=== PATIENT | male | born 1980 | race Two or more races ===

== ENCOUNTER 2025-02-12 11:27 | Emergency (ER) | payer BC, SELFPAY ==
[2025-02-12 12:00] VITALS: BP 137/90; PULSE 76; RESP 16; TEMP 36.8; O2SAT 97; BMI 34.3
--- NOTE | 2025-02-12 12:11 | PD.EDABDPN ---
ED Abdominal Pain RME/HPI General Chief Complaint: Abdominal Pain Stated complaint: RLQ ABD PAIN Time seen by provider: 02/12/25 11:32 Arrival date/time: 02/12/25 11:27 RME / HPI RME / HPI narrative: DR. BELLA MAIN ED EVALUATION: 45-year-old male, accompanied by his father, presents to the Emergency Department for abdominal pain. The patient?s PCP and father is Dr. Larios. He reports that the pain began yesterday, initially located to the right of the umbilicus with an intensity of 8/10, which improved with ibuprofen but persisted mildly through the evening. Later that night, the pain migrated several inches downward to the right lower quadrant and became more constant and achy, currently rated 6/10. He denies nausea, vomiting, diarrhea, constipation, fever, or urinary symptoms. Reports excessive gas but no prior abdominal surgeries and no history of kidney stones. He can ambulate without difficulty, but sitting increases pressure and discomfort in the affected area. No known drug allergies. Related Data Allergies Allergy/AdvReac Type Severity Reaction Status Date / Time No Known Allergies Allergy Verified 02/12/25 11:30 Review of Systems Review of Systems Systems Reviewed: All systems reviewed, normal except as documented Past Medical History Social History SMOKING STATUS: Never smoker SUBSTANCE USE: does not use ALCOHOL: Never ED Exam Narrative Physical exam: GENERAL APPEARANCE: alert and oriented x 4, well-developed, well-nourished, appears mildly uncomfortable VITALS: All vitals were reviewed and the pulse ox is 97% on room air, which is normal according to my interpretation. HEENT: Normocephalic, atraumatic; pupils equal, round, reactive to light; EOMI; mucous membranes pink, moist; oropharynx clear NECK: Supple LUNGS: CTABL; no wheezes, no rales, no rhonchi HEART: Regular rate, regular rhythm; normal S1, S2; no murmurs ABDOMEN: Soft, mild involuntary guarding in the right lower quadrant; tenderness localized to RLQ; no rebound; non-distended; bowel sounds present BACK: no CVA tenderness EXTREMITIES: atraumatic; no edema NEUROLOGIC: awake; alert and oriented x4; cranial nerves II-XII grossly intact; no focal sensory or motor deficits PSYCHIATRIC: appropriate mood and affect SKIN: warm, dry, normal color; no rashes Course Quality Measures none Orders Category Date Time Status CT Screening NOW Care 02/12/25 12:[address] abdomen pelvis w con Stat Exams 02/12/25 12:53 Completed US renal BI Stat Exams 02/12/25 14:17 Taken CBC Stat Lab 02/12/25 12:38 Completed CMP [Comprehensive Metabolic Panel] Stat Lab 02/12/25 12:38 Completed Lipase Stat Lab 02/12/25 12:38 Completed UA, C/S IF [Urinalysis, C/S if Indicated] Stat Lab 02/12/25 12:50 Completed Ketorolac Inj [Toradol Inj] Med 02/12/25 15:08 Discontinued 15 mg IVP X1 ONE Morphine* Inj Med 02/12/25 12:11 Discontinued 4 mg IVP X1 ONE Ondansetron Inj [Zofran Inj] Med 02/12/25 12:11 Discontinued 4 mg IVP X1 ONE Vital Signs Vital signs: Vital Signs Temperature 98.2 F 02/12/25 12:00 Pulse Rate 76 02/12/25 12:00 Respiratory Rate 16 02/12/25 12:00 Blood Pressure 137/90 H 02/12/25 12:00 Pulse Oximetry (%) 97 02/12/25 12:00 Oxygen Delivery Method Room Air 02/12/25 12:00 Abdominal Pain MDM MDM Narrative MDM Narrative:: I, Kerry Rao am scribing for and in the presence of Dr. Bella. Patient data External records reviewed:: None (no previous visits) Clinical information provided by:: patient and parent Social determinants that could affect healthcare access:: none Patient has the following chronic illnesses:: Denies any PMHx, surgeries, daily medications, or known allergies. How is presenting disease/condition affected by chronic disease/condition?: no chronic disease Evaluation data The following diagnostics were reviewed and interpreted by me:: lab results and radiology exam(s) Lab and/or radiology exams considered but not ordered:: none Interpretation Summary: Procedure(s): CT abdomen pelvis w con Accession Number(s): [id number] cc: Camden Larios MD; Rai Bullock MD; Oxana Bella MD~ Examination: CT abdomen with intravenous contrast CT pelvis with intravenous contrast 2-D coronal reconstructions 2-D sagittal reconstructions Date and time of exam: February 12, 2025, 1336 hours INDICATIONS: Right lower abdominal pain beginning today.. CTDI: vol (mGy) 13.2 DLP: (mGycm) 730 Technique: Multiple axial sections of the abdomen and pelvis have been obtained. 64 slice high-resolution scanner used. 3 mm axial sections have been obtained, post intravenous injection 60 cc Isovue 370. 2-D sagittal, coronal reconstructions obtained. Low dose protocols were performed. One or more of the following dose reduction techniques were used; automated exposure control, adjustment of the mA and/or KV according to patient size, use of iterative reconstruction technique. Findings: 35 mm lesion dome of the liver with peripheral nodular enhancement likely hemangioma No splenic adrenal or pancreatic mass No renal or ureteral calculi, no hydronephrosis Aorta normal size. Tiny fat-containing umbilical hernia. No bowel obstruction or diverticulitis. No significant prostatomegaly Mild thickening urinary bladder wall Normal appendix, coronal image 76, no pericecal inflammatory change IMPRESSION: Recommend pelvic sonography to confirm hemangioma Normal appendix Mild urinary bladder wall thickening, consider cystitis Dictated By: Rai Bullock MD Patient left before the US report was back. He is aware and will request medical records if needed. Medications / Prescriptions Medications or Prescriptions considered but not ordered:: none Medication administrations:: Medication Administration History Discontinued Medications Ketorolac Tromethamine (Ketorolac Inj 30 Mg/Ml Vial) 15 mg IVP X1 ONE Stop: 02/12/25 15:09 Last Admin: 02/12/25 15:14 Dose: 15 mg Documented By: MIKO Comments: Given IM Morphine Sulfate (Morphine Sulf Inj 4 Mg/Ml Vial) 4 mg IVP X1 ONE Stop: 02/12/25 12:12 Last Admin: 02/12/25 13:06 Dose: Not Given Documented By: TM Non-Admin Reason: Patient Refused Ondansetron HCl (Ondansetron Inj 2 Mg/Ml Inj 2 Ml) 4 mg IVP X1 ONE Stop: 02/12/25 12:12 Last Admin: 02/12/25 13:06 Dose: Not Given Documented By: TM Non-Admin Reason: Patient Refused see above Consultations Consultation(s) initiated? (list below): No Diagnosis Differential diagnosis abdominal pain: other (Acute appendicitis, right lower quadrant colitis, and gas-related distention.) Most likely diagnosis given after review of the tests above:: Right sided abdominal pain Microscopic hematuria Admission Indicated Admission indicated?: not indicated Admission Request Was there a request for admission?: No Disposition Plan Disposition Plan: Discharge Discharge Attestation Discharge Attestation: The patient and all family members were given an opportunity to ask questions and understood the discharge instructions. Discharge instructions specifically effects, indications for sooner follow up or return to the emergency department, and the expected course of current diagnosis. Patient condition: Stable Discharge Plan Plan Patient Disposition: HOME (Self Care) Prescriptions/Referrals Referrals: Camden Larios MD [Primary Care Provider, Internal Medicine] - In 1 week Problem List Clinical Impression: Right sided abdominal pain, Microscopic hematuria Patient/Caregiver Discharge Instructions Education Materials: Abdominal Pain, Hematuria: Possible Causes Print Language: Kiswahili Stand Alone Forms: Rosa Award Info., Patient Portal Info Letter
--- NOTE | 2025-02-12 12:53 | XR_ITS ---
Examination: CT abdomen with intravenous contrast CT pelvis with intravenous contrast 2-D coronal reconstructions 2-D sagittal reconstructions Date and time of exam: February 12, 2025, 1336 hours INDICATIONS: Right lower abdominal pain beginning today.. CTDI: vol (mGy) 13.2 DLP: (mGycm) 730 Technique: Multiple axial sections of the abdomen and pelvis have been obtained. 64 slice high-resolution scanner used. 3 mm axial sections have been obtained, post intravenous injection 60 cc Isovue 370. 2-D sagittal, coronal reconstructions obtained. Low dose protocols were performed. One or more of the following dose reduction techniques were used; automated exposure control, adjustment of the mA and/or KV according to patient size, use of iterative reconstruction technique. Findings: 35 mm lesion dome of the liver with peripheral nodular enhancement likely hemangioma No splenic adrenal or pancreatic mass No renal or ureteral calculi, no hydronephrosis Aorta normal size. Tiny fat-containing umbilical hernia. No bowel obstruction or diverticulitis. No significant prostatomegaly Mild thickening urinary bladder wall Normal appendix, coronal image 76, no pericecal inflammatory change IMPRESSION: Recommend pelvic sonography to confirm hemangioma Normal appendix Mild urinary bladder wall thickening, consider cystitis
[2025-02-12 12:55] LABS: Basophils # (Auto) 0.0 Thou/mm3 (0.0-0.2); Basophils % (Auto) 1 % (0-2.5); Eosinophils # (Auto) 0.1 Thou/mm3 (0.0-0.5); Eosinophils % (Auto) 1 % (0-10); Hematocrit 44.9 % (41.0-53.0); Hemoglobin 15.3 g/dL (13.5-16.0); Immature Granulocytes Auto 0.04 Thou/mm3 (0.00-0.00); Lymphocytes # (Auto) 3.2 Thou/mm3 (1.0-4.8); Lymphocytes % (Auto) 37 % (10-50); Mean Corpuscular HGB Conc 34.1 g/dl (31.0-37.0); Mean Corpuscular Hemoglobin 29.8 pg (25.0-35.0); Mean Corpuscular Volume 88 fL (80-100); Monocytes # (Auto) 0.6 Thou/mm3 (0.0-0.8); Monocytes % (Auto) 7 % (0-12); Neutrophils # (Auto) 4.6 Thou/mm3 (1.8-7.7); Neutrophils % (Auto) 54 % (37-80); Nucleated Red Blood Cell # 0.00 Thou/mm3 (0.00-0.00); Nucleated Red Blood Cell % 0 /100 WBC (0); Platelet Count 314 Thou/mm3 (140-440); RDW Standard Deviation 37.4 fL (35.1-43.9); Red Blood Count 5.13 Miln/mm3 (4.50-5.90); White Blood Count 8.6 Thou/mm3 (3.8-10.6)
[2025-02-12 12:56] LABS: Collection Type, Urine Clean Catch; Squamous Epithelial Cell,Urine 0 /hpf (0-5)
[2025-02-12 13:05] LABS: Alanine Aminotransferase 48 U/L (10-49); Albumin, Serum 4.7 gm/dL (3.5-5.0); Albumin/Globulin Ratio 2.0 (1.2-2.2); Alkaline Phosphatase 135 U/L (46-116); Anion Gap 8 (7-16); Aspartate Amino Transferase 33 U/L (0-34); BUN/Creatinine Ratio 12 Ratio (12-20); Bilirubin,Total 0.5 mg/dL (0.3-1.2); Blood Urea Nitrogen 11 mg/dL (9-23); Calcium 9.3 mg/dL (8.3-10.6); Calcium (Corrected) 9.3 mg/dL (8.5-10.1); Carbon Dioxide 30.7 mMol/L (20.0-31.0); Chloride 105 mMol/L (98-107); Creatinine (Component) 0.9 mg/dL (0.6-1.3); Estimated Creatinine Clearance 106.4 mL/min (>60); Globulin 2.3 gm/dL (2.3-3.5); Glucose 83 mg/dL (74-106); Lipase 40 U/L (12-53); Osmolality,Calculated 285 (275-295); Potassium 4.0 mMol/L (3.4-5.1); Sodium 144 mMol/L (136-145); Total Protein 7.0 gm/dL (5.7-8.2); eGFR > 60 See Note
--- NOTE | 2025-02-12 13:06 | PC.NURSE ---
PT REFUSED MEDICATIONS, STATES IF PAIN GETS BAD ENOUGH HE WILL REQUEST THEM
[2025-02-12 13:07] LABS: Bilirubin,Urine Negative (Negative); Blood,Urine Trace (Negative); Clarity,Urine Clear (Clear/Hazy); Color,Urine Lt-Yellow (Lt Yel-Yel); Culture Indicated,Urine Not Indicated; Glucose, Urine Negative (Negative); Ketones,Urine Negative (Negative); Leukocyte Esterase,Urine Negative (Negative); Nitrite,Urine Negative (Negative); PH,Urine 7.0 (5.0-7.0); Protein,Urine Negative (Neg - Trace); RBC,Urine 4 /hpf (0-3); Specific Gravity,Urine 1.015 (1.001-1.035); Urobilinogen,Urine Negative mg/dL (0.0-1.0); WBC,Urine 1 /hpf (0-5)
[2025-02-12 14:07] VITALS: BP 123/87; PULSE 78; RESP 18; TEMP 36.6; O2SAT 96
--- NOTE | 2025-02-12 14:17 | XR_ITS ---
Examination: Retroperitoneal ultrasound, complete Technique: Multiple high resolution grayscale images of the retroperitoneum obtained, including kidneys and bladder. Exam date and time: February 12, 2025, 1426 hours INDICATIONS: Microscopic hematuria and right lower abdominal pain beginning yesterday. FINDINGS: Right kidney 10.7 cm renal cortex 1.5 cm Left kidney 10.7 cm renal cortex 1.6 cm 18 mm lower pole left renal cyst No renal calculi or hydronephrosis No bladder mass or bladder calculi, bladder prevoid volume 390 cc Prostate volume 35 cc no prostate nodules IMPRESSION: Bilateral renal cortical thinning No renal calculi, no hydronephrosis
[2025-02-12] MEDS: KETOROLAC INJ 30 MG/ML VIAL 15 MG IVP (15:14)
[2025-02-12 15:17] VITALS: BP 122/82; PULSE 78
== END 2025-02-12 15:18 | disposition home or self-care (01) ==
PROVIDERS: Emergency Provider Emergency Medicine; PCP Internal Medicine
DX: R31.29 Other microscopic hematuria (principal)
CPT/HCPCS: 36415; 74177; 76770; 80053; 81001; 83690; 85025; 99283; A4649; J1885; Q9967

== ENCOUNTER → 2025-02-27 | Outpatient (CLI) | payer BC, SELFPAY ==
[2025-02-27 17:03] LABS: Glucose Estimated Average 111 mg/dL (80-131); Hemoglobin A1C 5.5 % Hgb (4.8-6.0)
[2025-02-27 17:06] LABS: Vitamin D 25 Hydroxy Total 46.3 ng/mL (7.3-40.2)
[2025-02-27 17:14] LABS: Alanine Aminotransferase 53 U/L (10-49); Albumin, Serum 4.3 gm/dL (3.5-5.0); Alkaline Phosphatase 133 U/L (46-116); Aspartate Amino Transferase 31 U/L (0-34); Bilirubin,Direct 0.1 mg/dL (0.0-0.3); Bilirubin,Total 0.3 mg/dL (0.3-1.2); Cardiac Risk Estimate 3.7 RATIO (4.0-6.7); Cholesterol 180 mg/dL (132-200); Free T4 (Free Thyroxine) 1.01 ng/dL (0.89-1.76); HDL Cholesterol 49 mg/dL (40-60); LDL Cholesterol,Calculated 109 mg/dL (0-130); Thyroid Stimulating Hormone 2.10 uIU/mL (0.55-4.78); Total Protein 6.4 gm/dL (5.7-8.2); Triglycerides 111 mg/dL (30-150)
== END | disposition home or self-care (01) ==
LOC: COPL 14:53
PROVIDERS: PCP Internal Medicine; Referring Provider Internal Medicine; Visit Provider Internal Medicine
DX: Z00.00 Encounter for general adult medical examination without abnormal findings (principal); E55.9 Vitamin D deficiency, unspecified; E03.9 Hypothyroidism, unspecified
CPT/HCPCS: 36415; 80061; 80076; 82306; 83036; 84439; 84443